=== PATIENT | male | born 1990 | race Caucasian/White ===

== ENCOUNTER 2016-10-26 13:18 | Emergency (ER) | payer OTHER ==
[~2016-10-26] VITALS: Ht 182.9 cm; Wt 78.9 kg
[2016-10-26 13:20] VITALS: BP 130/81
[2016-10-26] MEDS ORDERED: IBUPROFEN 400 MG TABLET PO ONE (13:30)
[2016-10-26] MEDS ORDERED: IBUPROFEN 400 MG TABLET ONE (13:30)
== END 2016-10-26 13:55 | disposition home or self-care (01) ==
LOC: ER 13:19
DX: S13.9XXA Sprain of joints and ligaments of unspecified parts of neck, initial encounter (principal); G80.9 Cerebral palsy, unspecified; V49.49XA Driver injured in collision with other motor vehicles in traffic accident, initial encounter; Y93.89 Activity, other specified; Y92.89 Other specified places as the place of occurrence of the external cause; Y99.9 Unspecified external cause status
CPT/HCPCS: 99282; A4606; Z7610